=== PATIENT | female | born 1960 | race Caucasian/White ===

== ENCOUNTER 2016-12-02 14:25 | Emergency (ER) | payer BC ==
[~2016-12-02] VITALS: Ht 149.9 cm; Wt 70.8 kg
[2016-12-02 14:28] VITALS: BP 144/90; PULSE 111; RESP 16; TEMP 97.1; O2SAT 97
[2016-12-02] MEDS ORDERED: NACL 0.9% 1,000 ML IV ONE (14:54)
[2016-12-02 15:07] LABS: BASOPHILS # (AUTO) 0.1 K/uL (0.0-0.2); EOSINOPHILS # (AUTO) 0.2 K/uL (0.0-0.4); EOSINOPHILS % (AUTO) 2.5 % (0.0-4.0); HEMATOCRIT 44.3 % (36-48); HEMOGLOBIN 14.4 g/dL (12.0-16.0); LYMPHOCYTES # (AUTO) 2.5 K/uL (1.0-5.5); LYMPHOCYTES % (AUTO) 37.6 % (20.5-51.5); MEAN CORPUSCULAR HEMOGLOBIN 28 pg (27-31); MEAN CORPUSCULAR HGB CONC 33 % (32-36); MEAN CORPUSCULAR VOLUME 85 fL (79.0-98.0); MONOCYTES # (AUTO) 0.5 K/uL (0.0-1.0); NEUTROPHILS # (AUTO) 3.4 K/uL (1.8-7.7); NEUTROPHILS % (AUTO) 50.9 % (40.0-70.0); PLATELET COUNT (AUTO) 186 K/uL (130-430); RED BLOOD CELL COUNT(AUTO) 5.23 MIL/uL (4.2-6.2); RED CELL DISTRIBUTION WIDTH 11.6 % (9.0-15.0); WHITE BLOOD COUNT (AUTO) 6.7 K/uL (4.8-10.8)
[2016-12-02 15:08] LABS: BILIRUBIN,URINE NEGATIVE (NEGATIVE); BLOOD, URINE NEGATIVE (NEGATIVE); CLARITY/URINE CLEAR (CLEAR); COLOR,URINE YELLOW (YELLOW); GLUCOSE,URINE 3+ (NEGATIVE); KETONES,URINE NEGATIVE (NEGATIVE); LEUKOCYTE ESTERASE ,URINE NEGATIVE (NEGATIVE); NITRITE, URINE NEGATIVE (NEGATIVE); PROTEIN URINE NEGATIVE (NEGATIVE); UROBILINOGEN,URINE 0.2 (0.2-1.0)
[2016-12-02 15:20] LABS: CALCIUM 9.1 mg/dL (8.4-11.0); CREATININE 0.98 mg/dL (0.55-1.30); POTASSIUM 3.9 mmol/L (3.5-5.1)
[2016-12-02 15:25] LABS: ALBUMIN 4.1 g/dL (3.4-4.8); TOTAL BILIRUBIN 0.5 mg/dL (0.0-1.0); TOTAL PROTEIN, SERUM 7.8 g/dL (6.4-8.3)
[2016-12-02 15:33] LABS: BACTERIA,URINE FEW /HPF (None Seen); MUCUS,URINE None Seen /LPF (None Seen); RBC,URINE NONE SEEN /HPF (0-3); WBC,URINE 0-3 /HPF (0-3); YEAST,URINE Few /HPF (None Seen)
[2016-12-02] MEDS ORDERED: MAGNESIUM CITRATE 300 ML ORAL SOLUTION PO ONE (16:45)
[2016-12-02 17:05] VITALS: BP 124/65; PULSE 88; RESP 16; TEMP 98.2; O2SAT 97
== END 2016-12-02 17:05 | disposition home or self-care (01) ==
LOC: SED 14:25
DX: K59.00 Constipation, unspecified (principal); E11.9 Type 2 diabetes mellitus without complications; I10 Essential (primary) hypertension; E78.00 Pure hypercholesterolemia, unspecified
CPT/HCPCS: 36415; 74000; 80053; 81000; 81025; 82962; 83690; 85025; 96360; 99285; J7030

== ENCOUNTER 2017-06-28 13:59 | Outpatient (CLI) | payer BC | END 2017-06-28 20:23 | disposition home or self-care (01) | LOC: SRD 13:59 | PROVIDERS: ATTEND Family Medicine | DX: M47.896 Other spondylosis, lumbar region (principal) | CPT/HCPCS: 72110 ==

== ENCOUNTER 2017-09-06 09:15 | Outpatient (CLI) | payer BC | END 2017-09-06 20:34 | disposition home or self-care (01) | LOC: SMA 09:15 | PROVIDERS: ATTEND Family Medicine | DX: Z12.31 Encounter for screening mammogram for malignant neoplasm of breast (principal) | CPT/HCPCS: G0202 ==

== ENCOUNTER 2019-06-19 09:48 | Emergency (ER) | payer BC ==
[~2019-06-19] VITALS: Ht 149.9 cm; Wt 68.5 kg
[2019-06-19 10:11] VITALS: BP_SYST 146
--- NOTE | 2019-06-19 10:17 | NUR ---
Patient to ER bed 3 to gown for evaluation. Side rails up. Report given to Yvonne MARION.
--- NOTE | 2019-06-19 10:22 | NUR ---
pt arrives from home with an abcess on the right groin. Pt was seen at an urgent care and sent home with antibiotics, However, the pt does not report any improvement. Pt is currently afebrile and not in any distress.
--- NOTE | 2019-06-19 10:32 | NUR ---
ER at bedside examining patient.
--- NOTE | 2019-06-19 10:48 | NUR ---
Dr. Matthews at the bedside draining the pt's cyst. Pt is tolerating well.
--- NOTE | 2019-06-19 11:05 | NUR ---
pt reports feeling better. No c/o pain at the moment.
--- NOTE | 2019-06-19 11:22 | NUR ---
Patient given written and verbal discharge instructions and verbalizes understanding. ER MD discussed with patient the results and treatment provided. Patient in stable condition. ID arm band removed.Rx of Amoxicllin given. Patient educated on pain management and to follow up with PMD. Pain Scale 0/10.Opportunity for questions provided and answered. Medication side effect fact sheet provided.
[2019-06-19 11:23] VITALS: BP_SYST 146
== END 2019-06-19 11:23 | disposition home or self-care (01) ==
LOC: SED 09:48
DX: L72.0 Epidermal cyst (principal); I10 Essential (primary) hypertension; E11.9 Type 2 diabetes mellitus without complications
CPT/HCPCS: 99283